=== PATIENT | female | born 1945 | race Caucasian/White ===

== ENCOUNTER → 2021-09-09 | Day surgery (SDC) | payer BC, MEDICARE ==
[~2021-09-09] MED LIST: BENEFIBER PO; CALTRATE 600 +1 EAC1 PO; FAMOTIDINE20 MG PO; FENTANYL CITRATE/PF 100MCG/2 ML INJ ONE; HYDROXYCHLOROQ200 MG PO; KEPPRA500 MG PO; LINZESS72 MCG PO; LIPITOR10 MG PO; METOPROLOL TART50 MG PO; MIDAZOLAM HCL 2 MG/2 ML VIAL ONE; MULTI-VITAMIN1 EACH PO; PRESERVISION T1 EACH PO; STOOL SOFTENER50 MG PO
[2021-09-09] MEDS: PREOP PHACO EYE KIT ONE (09:38)
[2021-09-09] MEDS: OR PHACO EYE KIT ONE (09:38)
[2021-09-09 12:25] VITALS: BP 135/65
== END | disposition home or self-care (01) ==
LOC: OR 09:03
PROVIDERS: ATTEND Ophthalmology
DX: H25.11 Age-related nuclear cataract, right eye (principal); I10 Essential (primary) hypertension; E78.5 Hyperlipidemia, unspecified; G40.909 Epilepsy, unspecified, not intractable, without status epilepticus; Z11.52 Encounter for screening for COVID-19; Z79.899 Other long term (current) drug therapy
CPT/HCPCS: J2250; J3010; U0002; V2788

== ENCOUNTER → 2021-09-23 | Day surgery (SDC) | payer MEDICARE ==
[~2021-09-23] MED LIST changes: +OR PHACO EYE KIT ONE; +PREOP PHACO EYE KIT ONE
[2021-09-23 12:50] VITALS: BP 138/61
== END | disposition home or self-care (01) ==
LOC: OR 08:53
PROVIDERS: ATTEND Ophthalmology
DX: H25.12 Age-related nuclear cataract, left eye (principal); I10 Essential (primary) hypertension; E78.5 Hyperlipidemia, unspecified; G40.909 Epilepsy, unspecified, not intractable, without status epilepticus; K21.9 Gastro-esophageal reflux disease without esophagitis; Z01.812 Encounter for preprocedural laboratory examination; Z20.822 Contact with and (suspected) exposure to COVID-19; Z79.899 Other long term (current) drug therapy
CPT/HCPCS: 66984; U0002; J2250; J3010